=== PATIENT | female | born 1980 | race Caucasian/White ===

== ENCOUNTER 2019-04-03 11:05 | Emergency (ER) | payer SELFPAY ==
[~2019-04-03] VITALS: Ht 160 cm; Wt 54.4 kg
[2019-04-03] MEDS ORDERED: IV NORMAL SALINE 1000ML BAG 1,000 ML IV SCH (11:09)
--- NOTE | 2019-04-03 11:09 | PHYS DOC ---
Adult General Chief Complaint Chief Complaint: FLANK PAIN HPI HPI Patient is a 38 year old female who was brought here by EMS for evaluation of right lower abdominal pain started about several hours ago. Patient was recently diagnosed with kidney stone, was seen at [facility] on Friday, was discharged home with 6 tablets of [place] and a prescription for Cipro, she finishes the pain medication, still taking the antibiotic but the pain was out of control this morning so she called EMS to take her here. Review of Systems Review of Systems Constitutional: Denies fever or chills [] Eyes: Denies change in visual acuity, redness, or eye pain [] HENT: Denies nasal congestion or sore throat [] Respiratory: Denies cough or shortness of breath [] Cardiovascular: No additional information not addressed in HPI [] GI: Positive for right lower abdominal pain, nausea, vomiting, NO bloody stools or diarrhea [] : Denies dysuria or hematuria [] Musculoskeletal: Denies back pain or joint pain [] Integument: Denies rash or skin lesions [] Neurologic: Denies headache, focal weakness or sensory changes [] Endocrine: Denies polyuria or polydipsia [] All other systems were reviewed and found to be within normal limits, except as documented in this note. Current Medications Current Medications Current Medications Medications (Trade) Dose Ordered Sig/James Start Time Stop Time Status Last Admin Dose Admin Ceftriaxone Sodium (Rocephin) 1 gm 1X ONCE 04/03/19 14:00 04/03/19 14:01 DC Ketorolac Tromethamine (Toradol 30mg Vial) 30 mg 1X ONCE 04/03/19 11:15 04/03/19 11:50 DC 04/03/19 11:50 30 MG Ondansetron HCl (Zofran) 4 mg 1X ONCE 04/03/19 11:15 04/03/19 11:50 DC 04/03/19 11:50 4 MG Sodium Chloride 1,000 ml @ 1,000 mls/hr 1X ONCE 04/03/19 14:00 04/03/19 14:59 Allergies Allergies Allergies Coded Allergies Type Severity Reaction Last Updated Verified No Known Drug Allergies 04/03/19 No Physical Exam Physical Exam Constitutional: Well developed, well nourished, in moderate acute distress due to pain, non-toxic appearance. [] HENT: Normocephalic, atraumatic, bilateral external ears normal, oropharynx [address], no oral exudates, nose normal. [] Eyes: PERRLA, EOMI, conjunctiva normal, no discharge. [] Neck: Normal range of motion, no tenderness, supple, no stridor. [] Cardiovascular:Heart rate regular rhythm, no murmur [] Lungs & Thorax: Bilateral breath sounds clear to auscultation [] Abdomen: Bowel sounds normal, soft, There is tenderness to palpation in RLQ, no masses, no pulsatile masses. [] Skin: Warm, dry, no erythema, no rash. [] Back: No tenderness, no CVA tenderness. [] Extremities: No tenderness, no cyanosis, no clubbing, ROM intact, no edema. [] Neurologic: Alert and oriented X 3, normal motor function, normal sensory function, no focal deficits noted. [] Psychologic: Affect normal, judgement normal, mood normal. [] Current Patient Data Vital Signs Vital Signs Date Time Temp Pulse Resp B/P (MAP) Pulse Ox O2 Delivery O2 Flow Rate FiO2 04/03/19 11:28 98.6 51 16 147/81 (103) 95 Room Air 98.6 Lab Values Laboratory Tests Test 04/03/19 11:12 04/03/19 13:38 White Blood Count 17.8 x10^3/uL (4.0-11.0) H Red Blood Count 4.49 x10^6/uL (3.50-5.40) Hemoglobin 13.4 g/dL (12.0-15.5) Hematocrit 39.4 % (36.0-47.0) Mean Corpuscular Volume 88 fL (79-100) Mean Corpuscular Hemoglobin 30 pg (25-35) Mean Corpuscular Hemoglobin Concent 34 g/dL (31-37) Red Cell Distribution Width 13.9 % (11.5-14.5) Platelet Count 210 x10^3/uL (140-400) Neutrophils (%) (Auto) 90 % (31-73) H Lymphocytes (%) (Auto) 7 % (24-48) L Monocytes (%) (Auto) 3 % (0-9) Eosinophils (%) (Auto) 0 % (0-3) Basophils (%) (Auto) 0 % (0-3) Neutrophils # (Auto) 15.9 x10^3/uL (1.8-7.7) H Lymphocytes # (Auto) 1.2 x10^3/uL (1.0-4.8) Monocytes # (Auto) 0.5 x10^3/uL (0.0-1.1) Eosinophils # (Auto) 0.1 x10^3/uL (0.0-0.7) Basophils # (Auto) 0.1 x10^3/uL (0.0-0.2) Segmented Neutrophils % 85 % (35-66) H Band Neutrophils % 1 % (0-9) Lymphocytes % 9 % (24-48) L Monocytes % 5 % (0-10) Platelet Estimate Adequate (ADEQUATE) Sodium Level 137 mmol/L (136-145) Potassium Level 3.9 mmol/L (3.5-5.1) Chloride Level 103 mmol/L (98-107) Carbon Dioxide Level 23 mmol/L (21-32) Anion Gap 11 (6-14) Blood Urea Nitrogen 15 mg/dL (7-20) Creatinine 1.0 mg/dL (0.6-1.0) Estimated GFR (Cockcroft-Gault) 62.4 BUN/Creatinine Ratio 15 (6-20) Glucose Level 138 mg/dL (70-99) H Calcium Level 9.1 mg/dL (8.5-10.1) Total Bilirubin 0.3 mg/dL (0.2-1.0) Aspartate Amino Transferase (AST) 17 U/L (15-37) Alanine Aminotransferase (ALT) 11 U/L (14-59) L Alkaline Phosphatase 75 U/L (46-116) Total Protein 7.3 g/dL (6.4-8.2) Albumin 3.6 g/dL (3.4-5.0) Albumin/Globulin Ratio 1.0 (1.0-1.7) Urine Collection Type Unknown Urine Color Red Urine Clarity Cloudy Urine pH 5.0 Urine Specific [place] >=1.030 Urine Protein 100 mg/dL (NEG-TRACE) Urine Glucose (UA) Negative mg/dL (NEG) Urine Ketones (Stick) 15 mg/dL (NEG) Urine Blood Large (NEG) Urine Nitrite Negative (NEG) Urine Bilirubin Small (NEG) Urine Urobilinogen Dipstick 0.2 mg/dL (0.2 mg/dL) Urine Leukocyte Esterase Small (NEG) Urine RBC Tntc /HPF (0-2) Urine WBC 1-4 /HPF (0-4) Urine Squamous Epithelial Cells Many /LPF Urine Bacteria Few /HPF (0-FEW) Laboratory Tests 04/03/19 11:12 Laboratory Tests 04/03/19 11:12 EKG EKG [] Radiology/Procedures Radiology/Procedures [][facility] [address] [place] [address] IMAGING REPORT Signed PATIENT: RENARD BERMAN RACCOUNT: [id number] : 1980 LOCATION: ER AGE: 38 SEX: F EXAM STATUS: REG ER ORD. PHYSICIAN: JOLENE BASSETT DO REASON: RIGHT FLANK PAIN PROCEDURE: CT ABDOMEN PELVIS WO CONTRAST CT scan of the abdomen and pelvis without contrast 04/03/2019 CLINICAL HISTORY: Right flank pain. TECHNIQUE: Unenhanced, contiguous, 2 mm axial sections were obtained through the abdomen and pelvis. One or more of the following individualized dose reduction techniques were utilized for this study: 1. Automated exposure control. 2. Adjustment of the mA and/or kV according to patient size. 3. Use of iterative reconstruction technique. FINDINGS: Images through the lung bases demonstrate minimal dependent subsegmental atelectasis bilaterally. The liver, spleen, pancreas, and adrenal glands are within normal limits. A 4 mm nonobstructing calculus is seen involving the mid/lower pole of the right kidney. The right kidney is enlarged. Mild to moderate dilatation of the right intrarenal collecting system is seen. The right ureter is dilated throughout its course. Within the distal right ureter at the level of the right UVJ a 3 mm distal ureteral calculus is seen. This is causing mild to moderate obstruction of the right collecting system. There is no evidence of obstruction of the left collecting system. Atherosclerotic calcification of the abdominal aorta and its branches is noted. The abdominal aorta tapers normally. The gallbladder is well-distended. No free fluid or free air is seen within the abdomen. There is no evidence of bowel obstruction. Air and stool are seen throughout the colon. The appendix is well-visualized and is within normal limits. Images through pelvis demonstrate the urinary bladder distended with urine. Calcifications are seen within the pelvis consistent with phleboliths. No free fluid is seen. Mild S-shaped curvature of the thoracolumbar spine is noted. IMPRESSION: 3 mm distal right ureteral calculus is seen at the right UVJ which is causing mild to moderate obstruction of the right collecting system. Electronically signed by: Dillon Carrero MD (04/03/2019 12:26 PM) [facility] DICTATED and SIGNED BY: DILLON CARRERO MD DATE: 04/03/19 7883 Course & Med Decision Making Course & Med Decision Making Pertinent Labs and Imaging studies reviewed. (See chart for details) [She was given IV fluid, antibiotics, IV Toradol in the ER, she felt much better. Patient WILL BE discharged home. Dragon Disclaimer Dragon Disclaimer This electronic medical record was generated, in whole or in part, using a voice recognition dictation system. Departure Departure Impression: Primary Impression: Kidney stone on right side Disposition: 01 HOME, SELF-CARE Condition: IMPROVED Referrals: ENRIQUE RICHTER MD PLEASE CALL THIS UROLOGIST FOR FOLLOW UP NEXT WEEK Patient Instructions: Kidney Stones Scripts Tamsulosin Hcl (FLOMAX) 0.4 Mg Cap.er.24h 0.4 MG PO DAILY for 10 Days, #10 TAB Prov: JOLENE BASSETT DO 04/03/19 Ondansetron Hcl (ZOFRAN) 8 Mg Tablet 1 TAB PO Q8HRS PRN for NAUSEA, #20 TAB 1 Refill Prov: JOLENE BASSETT DO 04/03/19 Hydrocodone/Apap 5-325 (NORCO 5-325 TABLET) 1 Each Tablet 1 TAB PO PRN Q6HRS PRN for PAIN, #12 TAB 0 Refills Prov: JOLENE BASSETT DO 04/03/19 Ibuprofen (IBUPROFEN) 800 Mg Tablet 800 MG PO PRN Q8HRS PRN for PAIN, #30 TAB Prov: JOLENE BASSETT DO 04/03/19 JOLENE BASSETT DO Apr 03, 2019 11:09
[2019-04-03] MEDS ORDERED: ONDANSETRON PF 4 MG/2 ML VIAL. IV ONE (11:15)
[2019-04-03] MEDS ORDERED: KETOROLAC 30 MG/ML VIAL. IV ONE (11:15)
[2019-04-03 11:27] LABS: BASO # 0.1 x10^3/uL (0.0-0.2); BASO % 0 % (0-3); EOS # 0.1 x10^3/uL (0.0-0.7); EOS % 0 % (0-3); HEMATOCRIT 39.4 % (36.0-47.0); HEMOGLOBIN 13.4 g/dL (12.0-15.5); LYMPH # 1.2 x10^3/uL (1.0-4.8); LYMPH % 7 % (24-48); MEAN CORPUSCULAR HEMOGLOBIN 30 pg (25-35); MEAN CORPUSCULAR HGB CONC 34 g/dL (31-37); MEAN CORPUSCULAR VOLUME 88 fL (79-100); MONO # 0.5 x10^3/uL (0.0-1.1); MONO % 3 % (0-9); NEUT # 15.9 x10^3/uL (1.8-7.7); NEUT % 90 % (31-73); PLATELET COUNT 210 x10^3/uL (140-400); RED BLOOD COUNT 4.49 x10^6/uL (3.50-5.40); RED CELL DISTRIBUTION WIDTH 13.9 % (11.5-14.5); WHITE BLOOD COUNT 17.8 x10^3/uL (4.0-11.0)
[2019-04-03 11:38] LABS: CALCIUM 9.1 mg/dL (8.5-10.1); GFR 62.4; POTASSIUM 3.9 mmol/L (3.5-5.1)
[2019-04-03 11:44] LABS: ALBUMIN 3.6 g/dL (3.4-5.0); TOTAL BILIRUBIN 0.3 mg/dL (0.2-1.0); TOTAL PROTEIN 7.3 g/dL (6.4-8.2)
[2019-04-03 12:19] LABS: % BANDS 1 % (0-9); % LYMPHS 9 % (24-48); % MONOS 5 % (0-10); % SEGS 85 % (35-66); PLT ESTIMATE ADEQUATE (ADEQUATE)
--- NOTE | 2019-04-03 12:28 | RAD ---
CT scan of the abdomen and pelvis without contrast 04/03/2019 CLINICAL HISTORY: Right flank pain. TECHNIQUE: Unenhanced, contiguous, 2 mm axial sections were obtained through the abdomen and pelvis. One or more of the following individualized dose reduction techniques were utilized for this study: 1. Automated exposure control. 2. Adjustment of the mA and/or kV according to patient size. 3. Use of iterative reconstruction technique. FINDINGS: Images through the lung bases demonstrate minimal dependent subsegmental atelectasis bilaterally. The liver, spleen, pancreas, and adrenal glands are within normal limits. A 4 mm nonobstructing calculus is seen involving the mid/lower pole of the right kidney. The right kidney is enlarged. Mild to moderate dilatation of the right intrarenal collecting system is seen. The right ureter is dilated throughout its course. Within the distal right ureter at the level of the right UVJ a 3 mm distal ureteral calculus is seen. This is causing mild to moderate obstruction of the right collecting system. There is no evidence of obstruction of the left collecting system. Atherosclerotic calcification of the abdominal aorta and its branches is noted. The abdominal aorta tapers normally. The gallbladder is well-distended. No free fluid or free air is seen within the abdomen. There is no evidence of bowel obstruction. Air and stool are seen throughout the colon. The appendix is well-visualized and is within normal limits. Images through pelvis demonstrate the urinary bladder distended with urine. Calcifications are seen within the pelvis consistent with phleboliths. No free fluid is seen. Mild S-shaped curvature of the thoracolumbar spine is noted. IMPRESSION: 3 mm distal right ureteral calculus is seen at the right UVJ which is causing mild to moderate obstruction of the right collecting system. Electronically signed by: Dillon Carrero MD (04/03/2019 12:26 PM) [facility]
[2019-04-03] MEDS ORDERED: IV NORMAL SALINE 1000ML BAG 1,000 ML IV ONE ×2 (12:45→14:00)
[2019-04-03 13:50] LABS: BILIRUBIN,URINE SMALL (NEG); CLARITY,URINE CLOUDY; COLOR,URINE RED; NITRITE,URINE NEGATIVE (NEG); PROTEIN,URINE 100 mg/dL (NEG-TRACE); UROBILINOGEN,URINE 0.2 mg/dL (0.2 mg/dL)
[2019-04-03 13:59] LABS: RBC,URINE TNTC /HPF (0-2)
[2019-04-03 14:00] LABS: BACTERIA,URINE FEW /HPF (0-FEW); SQUAMOUS EPITHELIAL CELL,UR MANY /LPF
[2019-04-03] MEDS ORDERED: cefTRIAXone IV Push 1 GM VIAL. IVP ONE (14:00)
[2019-04-03 14:20] VITALS: BP 138/78
[2019-04-03] MEDS ORDERED: TAMS0.4C97 PO (14:41)
[2019-04-03] MEDS ORDERED: IBUP-1060 PO (14:41)
[2019-04-03] MEDS ORDERED: ONDA8TAB9 PO (14:41)
[2019-04-03] MEDS ORDERED: HYDR-3164 PO (14:41)
== END 2019-04-03 14:46 | disposition home or self-care (01) ==
LOC: ER 11:05
DX: N20.0 Calculus of kidney (principal)
CPT/HCPCS: 36415; 74176; 80053; 81001; 85007; 85025; 87086; 96361; 96374; 96375; 99285; J0696; J1885; J2405; J7030